=== PATIENT | female | born 1975 | race Caucasian/White ===

== ENCOUNTER 2018-05-09 15:16 | Observation (INO) | payer BC ==
--- NOTE | 2018-05-09 15:36 | EDPHY ---
H & P Stated Complaint: Chest pain Time Seen by Provider: 05/09/18 15:35 HPI/ROS: HPI CHIEF COMPLAINT: Chest pain. HISTORY OF PRESENT ILLNESS: Patient very pleasant 42-year-old female she has significant medical history for asthma and thyroid dysfunction, remote history of SVT and pericarditis, obesity, otherwise healthy, presents emergency room with chest pain. She states over the last week she has had multiple episodes of left-sided substernal chest pain that she describes a dull sensation. She was working out this morning around 9:30 a.m. And was running and developed some chest pain. This describes a dull ache substernal left-sided. Nonradiating. It lasted a minute. She stoped her workout called her doctor. Her doctor recommended she comes emergency room for evaluation. She arrives emergency room in no acute distress she denies active chest pain at this time. Noted be somewhat hypertensive. Past Medical History: Asthma, thyroid disease, SVT, pericarditis Past Surgical History: Multiple orthopedic surgeries, gastric bypass, gallbladder surgery, Social History: Denies tobacco or drugs. Does occasionally drink alcohol. Family History: Family history significant for coronary artery disease in her father who had a CABG in age 50s. Mom AFib. ROS REVIEW OF SYSTEMS: 10 Systems were reviewed and negative with the exception of the elements mentioned in the history of present illness. Exam Constitutional triage nursing summary reviewed, vital signs reviewed, awake/ alert. Vital signs noted at triage. Hypertensive. Eyes normal conjunctivae and sclera, EOMI, PERRLA. HENT normal inspection, atraumatic, moist mucus membranes, no epistaxis, neck supple/ no meningismus, no raccoon eyes. Respiratory clear to auscultation bilaterally, normal breath sounds, no respiratory distress, no wheezing. Cardiovascular rate normal, regular rhythm, no murmur, no edema, distal pulses normal. Gastrointestinal soft, non-tender, no rebound, no guarding, normal bowel sounds, no distension, no pulsatile mass. Genitourinary no CVA tenderness. Musculoskeletal no midline vertebral tenderness, full range of motion, no calf swelling, no tenderness of extremities, no meningismus, good pulses, neurovascularly intact. Skin pink, warm, & dry, no rash, skin atraumatic. Neurologic awake, alert and oriented x 3, AAOx3, moves all 4 extremities equally, motor intact, sensory intact, CN II-XII intact, normal cerebellar, normal vision, normal speech. Psychiatric normal mood/affect. Heme/Lymph/Immune no lymphadenopathy. Differential Diagnosis: Differential diagnosis includes but is not limited to: ACS, atypical chest pain, pneumothorax, pneumonia, pulmonary embolism, aortic dissection, congestive heart failure, tumor, musculoskeletal pain, esophageal pain, GERD, peptic ulcer disease, pancreatitis Medical Decision Making: Plan for this patient IV establishment, EKG, troponin , cardiac monitoring, evaluate for acute coronary syndrome and chest pain. Re-evaluation: EKG interpretation by me on record in [facility] system. Impression time of EKG 1538, sinus tach 109 borderline T-wave abnormalities noted lead 3 AVF and flattening in V3 V4 V5. No ST elevation. 1614: Patient has an elevated D-dimer in the setting of chest pain tachycardia and abnormal T-waves on her EKG I discussed proceeding with a CT angiogram of the chest rule out PE. Patient is agreeable for this. Reason for CT angiogram of the chest rule out pulmonary embolism the setting of tachycardia, T-wave abnormalities, and chest pain. D-dimer noted 1.58. Patient CT angiogram called to me by Dr. Fritz Roberts. This was attempted multiple times however did not get a good contrast bolus. Were able to rule out no central PE but unable to determine peripheral PEs. Will plan on bilateral lower extremity ultrasound rule out DVTs. Additionally the patient has cardiovascular risk factors include family history , obesity, exertional chest pain and an EKG that has some T-wave abnormalities. Do these risk factors the patient will be admitted to the hospital for further cardiac evaluation and rule out. The patient agrees on this plan. Consult the hospitalist service Dr. Jimenez who agrees to admit. Source: Patient - Personal History LMP (Females 10-55): IUD In Place Current Tetanus/Diphtheria Vaccine: No - Medical/Surgical History Hx Asthma: Yes Hx Chronic Respiratory Disease: No Hx Diabetes: No Hx Cardiac Disease: Yes Hx Renal Disease: No Hx Cirrhosis: No Hx Alcoholism: No Other PMH: asthma, hypothyroidism - Social History Smoking Status: Never smoked Constitutional: Initial Vital Signs Temperature (C) 36.6 C 05/09/18 15:20 Heart Rate 105 H 05/09/18 15:20 Respiratory Rate 15 05/09/18 15:20 Blood Pressure 159/104 H 05/09/18 15:20 O2 Sat (%) 98 05/09/18 15:20 O2 Delivery Mode Room Air Allergies/Adverse Reactions: Tetanus Vaccines and Toxoid [Tetanus] Allergy (Verified 05/09/18 15:23) Home Medications: Medication Instructions Recorded Multivitamins [Multivitamin (*)] 1 each PO DAILY 02/05/10 Albuterol Sulfate [Proair 90 mcg IH DAILY PRN 05/09/18 Respiclick] Levothyroxine [Synthroid 50 mcg 50 mcg PO DAILY06 05/09/18 (*)] Mometasone Furoate [Asmanex Hfa] 2 puffs IH DAILY 05/09/18 Montelukast Sodium [Singulair 10 10 mg PO DAILY@1800 05/09/18 mg (*)] Medical Decision Making - Data Points Laboratory Results: Laboratory Results 05/09/18 15:35 05/09/18 15:35 Medications Given: Levothyroxine Sodium (Synthroid) 50 mcg PO DAILY06 [facility] Stop: 11/06/18 05:59 Last Admin: 05/10/18 06:49 Dose: 50 mcg Miscellaneous Medication (Mometasone Furoate [Asmanex Hfa]) 2 puffs IH DAILY [facility] Stop: 11/06/18 08:59 Last Admin: 05/10/18 11:17 Dose: Not Given Montelukast Sodium (Singulair) 10 mg PO DAILY@1800 [facility] Stop: 11/06/18 17:59 Last Admin: 05/10/18 17:45 Dose: 10 mg Multivitamins (Tab-A-Disha) 1 each PO DAILY [facility] Stop: 11/06/18 08:59 Last Admin: 05/10/18 17:16 Dose: Not Given Discontinued Medications Aspirin (Aspirin) 325 mg PO EDNOW ONE Stop: 05/09/18 17:42 Last Admin: 05/09/18 17:58 Dose: 325 mg Sodium Chloride (Ns) 1,000 mls @ 0 mls/hr IV EDNOW ONE; Wide Open PRN Reason: Protocol Stop: 05/09/18 15:45 Last Admin: 05/09/18 16:03 Dose: 1,000 mls Point of Care Test Results: Chemistry 05/09/18 15:40 POC Troponin I 0.01 ng/mL ng/mL (0.00-0.08) Departure - Departure Disposition: [facility] Inpatient Acute Clinical Impression: Chest pain Qualifiers: Chest pain type: unspecified Qualified Code(s): R07.9 - Chest pain, unspecified Condition: Fair
[2018-05-09] MEDS ORDERED: NS 1,000 ML IV ONE (15:44)
[2018-05-09 15:52] LABS: PLATELET COUNT 171 10^3/uL (150-400)
[2018-05-09 16:00] LABS: INR 0.89 (0.83-1.16); PROTIME(PATIENT) 12.3 SEC (12.0-15.0)
[2018-05-09] MEDS ORDERED: IOPAMIDOL (ISOVUE 370) 100 ML BTL IV ONE ×2 (16:22→16:56)
[2018-05-09] MEDS ORDERED: ASPIRIN 325 MG TAB PO ONE (17:41)
[2018-05-09] MEDS ORDERED: ASPIRIN 81 MG CHEWABLE TAB ONE (17:57)
[2018-05-09] MEDS ORDERED: ONDANSETRON DISINTEGRATING 4 MG TAB PO PRN (18:04)
[2018-05-09] MEDS ORDERED: ONDANSETRON 4 MG/2 ML VIAL IVP PRN (18:04)
[2018-05-09] MEDS ORDERED: ACETAMINOPHEN 325 MG TAB PO PRN (18:04)
--- NOTE | 2018-05-09 18:25 | HOSPPROG ---
Hospitalist Progress Note Assessment/Plan: 42 yo F with PMH of RAD, remote hx of SVT and pericarditis admitted with chest pain for the last week # chest pain: patient notes that for the last week she has had intermittent dull chest pain, worse with exertion. No prior hx of same, she does have a family hx of premature CAD (father with CABG at age 50) but otherwise no significant cardiac risk factors. Heart score of 3, plan to monitor overnight on tele, trend trops and ecg overnight. Given baseline abnormal ecg (non specific t-wave changes) will get exercise nuc stress test in am if w/u overnight remains unremarkable # elevated d dimer: CTA performed however limited study only able to r/o central PE, will get f/u bilateral lower extremity US to eval for DVT, if this is unremarkable as well consider echo in am to eval for signs of right heart strain versus v/q study if no other etiology found for chest pain and remains symptomatic--low suspicion for PE given lack of hypoxia or pleuritic component to her chest pain # RAD: without e/o acute exacerbation, continue op regimen # morbid obesity: with BMI of 46, recommend lifestyle modification, patient does have a hx of gastric bypass remotely # hx of SVT: no longer on medications and has not been recurrent in many years per her report, monitoring on tele # hypothyroid: reports being recently initiated on thyroid supplementation, will continue when medications are confirmed # observation status Patient new to my care. Old records reviewed and summarized as above. Care plan reviewed with ER doctor as above as well as AUDREY Waldrop, please see her separate documentation for further details. Objective: Vital Signs Temp Pulse Resp BP Pulse Ox 36.6 C 86 24 H 124/77 H 97 05/09/18 15:20 05/09/18 17:30 05/09/18 17:30 05/09/18 17:30 05/09/18 17:30 PT 12.3 SEC (12.0-15.0) 05/09/18 15:35 INR 0.89 (0.83-1.16) 05/09/18 15:35 ICD10 Worksheet Patient Problems: Problems Problem Status Onset Chest pain Acute
[2018-05-09] MEDS ORDERED: ALBUTEROL 60 PUFFS/8 GM MDI IH PRN (19:30)
--- NOTE | 2018-05-09 19:31 | PDGENHP ---
<Roma Waldrop - Last Filed: 05/09/18 19:44> History and Physical - Chief Complaint Chest pain - History of Present Illness HPI: This is a 42 y/o female with hx of asthma, obesity, thyroid dysfunction and a remote hx of SVT and pericarditis presenting to the ER with c/o intermittent non-radiating left-sided substernal chest pain. Last week, she would randomly experience a chest pain that lasts 1 minute and then resolve. She would experience this at rest or with exertion. There was no associated symptoms when she experiences the chest pain. Today, she was exercising when she felt it. She stopped exercising and her chest pain resolved. She describes it as a persistent ache with an intensity of 2-3/10. She denies nausea, vomiting, shortness of breath, fevers, chills. She is being admitted for further work-up and monitoring. Past Medical History 1. Asthma 2. Thyroid dysfunction 3. Hx of SVTs and pericarditis Past Surgical History 1. Gastric bypass 2. Cholecystectomy 3. C/S Social 1. . Works as a technical support personnel, desk job. 2. Denies tobacco or illicit drug use. Drinks 2-3 glasses of wine 2-3 days out of the week. Uses CBD tincture oil. History Information - Allergies/Home Medication List Allergies/Adverse Reactions: Tetanus Vaccines and Toxoid [Tetanus] Allergy (Verified 05/09/18 15:23) Home Medications: Multivitamins [Multivitamin (*)] 1 each PO DAILY 02/05/10 [Last Taken 09/16/10 07:00] Albuterol Sulfate [Proair Respiclick] 90 mcg IH DAILY PRN 05/09/18 [Last Taken 05/09/18] Levothyroxine [Synthroid 50 mcg (*)] 50 mcg PO DAILY06 05/09/18 [Last Taken ] Mometasone Furoate [Asmanex Hfa] 2 puffs IH DAILY 05/09/18 [Last Taken 05/08/18] Montelukast Sodium [Singulair 10 mg (*)] 10 mg PO DAILY@1800 05/09/18 [Last Taken 05/08/18] I have personally reviewed and updated: family history, medical history, social history, surgical history Past Medical History: See HPI list - Surgical History Additional surgical history: See HPI list - Family History Additional family history: Father at CABG at 50 y/o. Mother has A-Fib - Social History Smoking Status: Never smoked Alcohol Use: Occasionally Drug Use: None Review of Systems Review of Systems: ROS: 10pt was reviewed & negative except for what was stated in HPI & below Physical Exam Physical Exam: Lab data and imaging were reviewed. Case discussed with admitting physician, Dr. Dada Jimenez INR: 0.89 D-Dimer: 1.58 Troponin: 0.01 EKG: Sinus tachycardia with borderline abnormal T-waves CXR: No focal infiltrate, pleural effusion or pneumothorax Chest CTA: No central pulmonary embolism however unable to view segmental branches d/t body habitus w/ contrast Dopper US of BLE: no DVT Temp Pulse Resp BP Pulse Ox 37.0 C 81 18 144/97 H 94 05/09/18 18:56 05/09/18 18:56 05/09/18 18:56 05/09/18 18:56 05/09/18 18:56 Constitutional: no apparent distress, appears nourished, not in pain, obese Eyes: PERRL, anicteric sclera, EOMI Ears, Nose, Mouth, Throat: moist mucous membranes, hearing normal, ears appear normal, no oral mucosal ulcers Cardiovascular: regular rate and rhythym, no murmur, rub, or gallop, No edema Peripheral Pulses: 2+: dorsalis-pedis (R) (Radial 2+), dorsalis-pedis (L) ( Radial 2+) Respiratory: no respiratory distress, no rales or rhonchi, clear to auscultation Gastrointestinal: normoactive bowel sounds, soft, non-tender abdomen, no palpable masses Genitourinary: no bladder fullness, no bladder tenderness Skin: warm, normal color, no rashes or abrasions, no fluctuance, no induration, No mottled Musculoskeletal: full muscle strength, no muscle tenderness, normal joint ROM, no joint effusions Neurologic: AAOx3, sensation intact bilaterally, CN II-XII Intact Psychiatric: interacting appropriately, not anxious, not encephalopathic, thought process linear Lymph, Heme, Immunologic: no cervical LAD, no supraclavicular LAD Lab Data & Imaging Review 05/09/18 15:35 05/09/18 15:35 WBC 8.26 10^3/uL (3.80-9.50) 05/09/18 15:35 RBC 4.36 10^6/uL (4.18-5.33) 05/09/18 15:35 Hgb 14.3 g/dL (12.6-16.3) 05/09/18 15:35 Hct 42.4 % (38.0-47.0) 05/09/18 15:35 MCV 97.2 fL (81.5-99.8) 05/09/18 15:35 MCH 32.8 pg (27.9-34.1) 05/09/18 15:35 MCHC 33.7 g/dL (32.4-36.7) 05/09/18 15:35 RDW 12.9 % (11.5-15.2) 05/09/18 15:35 Plt Count 171 10^3/uL (150-400) 05/09/18 15:35 MPV 11.6 fL (8.7-11.7) 05/09/18 15:35 Neut % (Auto) 60.4 % (39.3-74.2) 05/09/18 15:35 Lymph % (Auto) 28.5 % (15.0-45.0) 05/09/18 15:35 Wolfe % (Auto) 8.2 % (4.5-13.0) 05/09/18 15:35 Eos % (Auto) 2.1 % (0.6-7.6) 05/09/18 15:35 Baso % (Auto) 0.6 % (0.3-1.7) 05/09/18 15:35 Nucleat RBC Rel Count 0.0 % (0.0-0.2) 05/09/18 15:35 Absolute Neuts (auto) 4.99 10^3/uL (1.70-6.50) 05/09/18 15:35 Absolute Lymphs (auto) 2.35 10^3/uL (1.00-3.00) 05/09/18 15:35 Absolute Monos (auto) 0.68 10^3/uL (0.30-0.80) 05/09/18 15:35 Absolute Eos (auto) 0.17 10^3/uL (0.03-0.40) 05/09/18 15:35 Absolute Basos (auto) 0.05 10^3/uL (0.02-0.10) 05/09/18 15:35 Absolute Nucleated RBC 0.00 10^3/uL (0-0.01) 05/09/18 15:35 Immature Gran % 0.2 % (0.0-1.1) 05/09/18 15:35 Immature Gran # 0.02 10^3/uL (0.00-0.10) 05/09/18 15:35 PT 12.3 SEC (12.0-15.0) 05/09/18 15:35 INR 0.89 (0.83-1.16) 05/09/18 15:35 APTT 24.6 SEC (23.0-38.0) 05/09/18 15:35 D-Dimer 1.58 ug/mLFEU (0.00-0.50) H 05/09/18 15:35 Sodium 137 mEq/L (135-145) 05/09/18 15:35 Potassium 3.7 mEq/L (3.5-5.2) 05/09/18 15:35 Chloride 107 mEq/L (97-110) 05/09/18 15:35 Carbon Dioxide 22 mEq/l (22-31) 05/09/18 15:35 Anion Gap 8 mEq/L (6-14) 05/09/18 15:35 BUN 10 mg/dL (7-23) 05/09/18 15:35 Creatinine 0.6 mg/dL (0.6-1.0) 05/09/18 15:35 Estimated GFR > 60 05/09/18 15:35 Glucose 90 mg/dL (70-100) 05/09/18 15:35 Calcium 9.1 mg/dL (8.5-10.4) 05/09/18 15:35 Magnesium 1.9 mg/dL (1.6-2.3) 05/09/18 15:35 Total Bilirubin 0.5 mg/dL (0.1-1.4) 05/09/18 15:35 Conjugated Bilirubin 0.3 mg/dL (0.0-0.5) 05/09/18 15:35 Unconjugated Bilirubin 0.2 mg/dL (0.0-1.1) 05/09/18 15:35 AST 22 IU/L (14-46) 05/09/18 15:35 ALT 24 IU/L (9-52) 05/09/18 15:35 Alkaline Phosphatase 110 IU/L (38-126) 05/09/18 15:35 POC Troponin I 0.01 ng/mL (0.00-0.08) 05/09/18 15:40 NT-Pro-B Natriuret Pep 85 pg/mL (0-125) 05/09/18 15:35 Total Protein 6.9 g/dL (6.3-8.2) 05/09/18 15:35 Albumin 4.2 g/dL (3.5-5.0) 05/09/18 15:35 Lipase 158 IU/L (23-300) 05/09/18 15:35 Beta HCG, Qual NEGATIVE 05/09/18 15:35 Assessment & Plan Plan: This is a 42 y/o female with remote hx of SVT, pericarditis, obesity and asthma presenting with intermittent chest pain with no associated symptoms. She is at higher risk for ACS d/t her weight, symptoms, and family hx. #Chest pain: Heart score 3. Chest CTA to r/o PE; no central PE however segmental branches could not be determined d/t body habitus. Doppler BLE negative for DVTs. -First troponin was negative. Cycle troponin x 2 -EKG sinus tachy with abnormal T waves. Cycle 1x EKG tonight and PRN should status change -Cont tele monitoring -Lipid panel in AM -If tonight remains uneventful, will perform NM treadmill test in AM therefore NPO at midnight tonight #Obesity: BMI 46. Remote gastric bypass. Educated pt on weight reduction and lifestyle modification. #Asthma: on inhalers and may continue to use while in hospital. #Hypothyoid: on levothyroxine. Checking TSH. Diet: Cardiac, NPO @ midnight tonight VTE ppx: SCDs Code: Full Dispo: Admit to obs <Dada Jimenez - Last Filed: 05/10/18 08:38> History and Physical - History of Present Illness Review of Systems Review of Systems: Physical Exam Physical Exam: Temp Pulse Resp BP Pulse Ox 36.7 C 65 18 132/87 H 96 05/10/18 08:00 05/10/18 08:00 05/10/18 08:00 05/10/18 08:00 05/10/18 08:00 O2 (L/minute) 2 Lab Data & Imaging Review 05/10/18 03:06 05/10/18 03:06 WBC 4.81 10^3/uL (3.80-9.50) 05/10/18 03:06 RBC 3.74 10^6/uL (4.18-5.33) L 05/10/18 03:06 Hgb 12.3 g/dL (12.6-16.3) L 05/10/18 03:06 Hct 38.1 % (38.0-47.0) 05/10/18 03:06 MCV 101.9 fL (81.5-99.8) H 05/10/18 03:06 MCH 32.9 pg (27.9-34.1) 05/10/18 03:06 MCHC 32.3 g/dL (32.4-36.7) L 05/10/18 03:06 RDW 12.9 % (11.5-15.2) 05/10/18 03:06 Plt Count 138 10^3/uL (150-400) L 05/10/18 03:06 MPV 12.2 fL (8.7-11.7) H 05/10/18 03:06 Neut % (Auto) 50.0 % (39.3-74.2) 05/10/18 03:06 Lymph % (Auto) 37.0 % (15.0-45.0) 05/10/18 03:06 Wolfe % (Auto) 8.9 % (4.5-13.0) 05/10/18 03:06 Eos % (Auto) 3.3 % (0.6-7.6) 05/10/18 03:06 Baso % (Auto) 0.4 % (0.3-1.7) 05/10/18 03:06 Nucleat RBC Rel Count 0.0 % (0.0-0.2) 05/10/18 03:06 Absolute Neuts (auto) 2.40 10^3/uL (1.70-6.50) 05/10/18 03:06 Absolute Lymphs (auto) 1.78 10^3/uL (1.00-3.00) 05/10/18 03:06 Absolute Monos (auto) 0.43 10^3/uL (0.30-0.80) 05/10/18 03:06 Absolute Eos (auto) 0.16 10^3/uL (0.03-0.40) 05/10/18 03:06 Absolute Basos (auto) 0.02 10^3/uL (0.02-0.10) 05/10/18 03:06 Absolute Nucleated RBC 0.00 10^3/uL (0-0.01) 05/10/18 03:06 Immature Gran % 0.4 % (0.0-1.1) 05/10/18 03:06 Immature Gran # 0.02 10^3/uL (0.00-0.10) 05/10/18 03:06 PT 12.3 SEC (12.0-15.0) 05/09/18 15:35 INR 0.89 (0.83-1.16) 05/09/18 15:35 APTT 24.6 SEC (23.0-38.0) 05/09/18 15:35 D-Dimer 1.58 ug/mLFEU (0.00-0.50) H 05/09/18 15:35 Sodium 137 mEq/L (135-145) 05/10/18 03:06 Potassium 3.7 mEq/L (3.5-5.2) 05/10/18 03:06 Chloride 108 mEq/L (97-110) 05/10/18 03:06 Carbon Dioxide 21 mEq/l (22-31) L 05/10/18 03:06 Anion Gap 8 mEq/L (6-14) 05/10/18 03:06 BUN 6 mg/dL (7-23) L 05/10/18 03:06 Creatinine 0.6 mg/dL (0.6-1.0) 05/10/18 03:06 Estimated GFR > 60 05/10/18 03:06 Glucose 87 mg/dL (70-100) 05/10/18 03:06 Calcium 8.1 mg/dL (8.5-10.4) L 05/10/18 03:06 Magnesium 1.9 mg/dL (1.6-2.3) 05/09/18 15:35 Total Bilirubin 0.6 mg/dL (0.1-1.4) 05/10/18 03:06 Conjugated Bilirubin 0.3 mg/dL (0.0-0.5) 05/09/18 15:35 Unconjugated Bilirubin 0.2 mg/dL (0.0-1.1) 05/09/18 15:35 AST 18 IU/L (14-46) 05/10/18 03:06 ALT 28 IU/L (9-52) 05/10/18 03:06 Alkaline Phosphatase 70 IU/L (38-126) 05/10/18 03:06 POC Troponin I 0.01 ng/mL (0.00-0.08) 05/09/18 15:40 Troponin I < 0.012 ng/mL (0.000-0.034) 05/10/18 03:06 NT-Pro-B Natriuret Pep 85 pg/mL (0-125) 05/09/18 15:35 Total Protein 5.3 g/dL (6.3-8.2) L 05/10/18 03:06 Albumin 3.1 g/dL (3.5-5.0) L 05/10/18 03:06 Triglycerides 134 mg/dL (35-135) 05/10/18 03:06 Cholesterol 157 mg/dL (140-200) 05/10/18 03:06 Cholesterol Risk Factr 0.8 (0.2-1.0) 05/10/18 03:06 LDL Cholesterol, Calc 89 mg/dL (70-100) 05/10/18 03:06 LDL Risk Factor 0.8 (0.2-1.0) 05/10/18 03:06 VLDL Cholesterol 27 mg/dL (8-25) H 05/10/18 03:06 Non-HDL Cholesterol 116 mg/dL (90-129) 05/10/18 03:06 HDL Cholesterol 41 mg/dL (40-95) 05/10/18 03:06 LDL/HDL Ratio 2.18 RATIO (1.00-3.22) 05/10/18 03:06 Cholesterol/HDL Ratio 3.83 RATIO (1.00-4.44) 05/10/18 03:06 Lipase 158 IU/L (23-300) 05/09/18 15:35 TSH 2.700 uIU/mL (0.465-4.680) 05/09/18 19:30 Beta HCG, Qual NEGATIVE 05/09/18 15:35 Assessment & Plan Assessment: Chest pain (Acute) Plan: Patient seen and evaluated independently and care plan reviewed with AUDREY Waldrop, agree with her assessment and plan as outlined above. Please see separate documentation for further details.
[2018-05-10 04:43] LABS: PLATELET COUNT 138 10^3/uL (150-400)
[2018-05-10] MEDS: LEVOTHYROXINE 50 MCG TAB PO SCH (06:49)
[2018-05-10] MEDS ORDERED: REGADENOSON 0.4 MG/5 ML SYR IVP ONE (10:01)
--- NOTE | 2018-05-10 10:37 | PDCARST ---
CAR Stress Test Results Type of Stress Test: Nuclear TM stress test Indication: cp Description of Procedure: After informed consent was obtained, pt was exercised according to Oleg Protocol. Monitoring was performed with standard stress engine dynamometer tester electrode placement. Vital signs were monitored according to protocol throughout the procedure. STRESS EKG AND HEMODYNAMIC DATA. Exercise time: 7: 10 min. This is equivalent to: 8.3 METS. Resting heart rate: 81 bpm. Resting blood pressure: 130/90 mmHg. Resting O2 saturation: 93 %. Peak heart rate: 174 bpm. This is 97 % of age predicted maximum heart rate response. Peak blood pressure: 160/100 mmHg. Exercise O2: 83 %. Arrhythmias: None. Reason for termination: The test was stopped due to maximal effort/hypoxia. Symptoms: The patient experienced no typical symptoms of angina during stress or recovery. STRESS TEST ANALYSIS. Baseline ECG: SR. Stress ECG: sinus tach. No exercise induced ischemic ECG changes. Rhythm: no arrhythmias noted during exercise and recovery. Blood pressure: Mild resting htn with normal blood pressure response to exercise. Exercise tolerance: The patient has average exercise tolerance adjusted for age and gender. Symptoms: Dyspnea. Impression: IMPRESSIONS: Stress ECG is negative for ischemia. The Noble Treadmill Score is +7, consistent with low cardiovascular risk (<1% annual mortality). Hypoxia at peak quickly resolved with cessation of Oleg protocol. Conclusion: DTS +7/ low risk. Hypoxia with exertion.
[2018-05-10] MEDS: Mometasone Furoate [Asmanex Hfa] 2 PUFFS IH SCH (11:17)
--- NOTE | 2018-05-10 15:12 | ASMTCMCOM ---
CM Note CM Note Notes: Discussed pt during rounds. Pt admitted for chest pain and elevated d dimer with history of asthma, obesity and thyroid dysfunction and remote gastric bypass. Pt lives independently with and did stress test today and will do resting scan tomorrow. Pt likely to discharge independently. CM to follow. D/C Plan: Independent Date Signed: 05/10/2018 03:11 PM Electronically Signed By:Katja Quinn
[2018-05-10] MEDS: MULTIVITAMINS 1 EACH TAB PO SCH (17:16)
[2018-05-10] MEDS ORDERED: MONTELUKAST SODIUM 10 MG TAB PO SCH (18:00)
[2018-05-11] MEDS: LEVOTHYROXINE 50 MCG TAB PO SCH (05:00)
--- NOTE | 2018-05-11 08:56 | HOSPPROG ---
Hospitalist Progress Note Objective: Vital Signs Temp Pulse Resp BP Pulse Ox 36.8 C 66 18 132/72 H 95 05/11/18 07:43 05/11/18 07:43 05/11/18 07:43 05/11/18 07:43 05/11/18 07:43 Laboratory Results 05/10/18 03:06 05/10/18 03:06 05/10/18 05/11/18 05/12/18 05:59 05:59 05:59 Intake Total 500 480 Output Total 700 Balance -200 480 PT 12.3 SEC (12.0-15.0) 05/09/18 15:35 INR 0.89 (0.83-1.16) 05/09/18 15:35 ICD10 Worksheet Patient Problems: Problems Problem Status Onset Chest pain Acute
[2018-05-11 12:18] VITALS: BP 143/91
--- NOTE | 2018-05-11 14:34 | PDDCSUM ---
Discharge Summary Discharge Summary: Discharge diagnosis Chest pain Hypothyroid Asthma The patient was admitted secondary to chest pain. ECG had some borderline T wave abnormalities. CT was obtained and found no acute abnormality and no pulmonary embolus. Her heart score was 3. An exercise stress test was obtained the next day which was normal. She became hypoxic during the stress test however and so a Lexiscan was ordered as well. On the exercise portion of the Lexiscan there was possibly an area of abnormality although neither Radiology or Cardiology could say for certain whether not this represented true wall motion abnormality. The resting portion of her myocardial perfusion imaging was normal however. Cardiology was consulted who felt that this likely represented an artifact given her history but because of her family history they felt that she should be followed up. She was discharged home to follow up with [facility] in the next 1-2 weeks. Discharge disposition Home in good condition New medications None
--- NOTE | 2018-05-11 14:45 | ASMTDCNOTE ---
Case Management Discharge Discharge Order Complete? Answers: Yes Patient to Obtain Answers: via Family Medications Transportation Arranged Answers: Family/Friends Discharge Comments Notes: Pt is being discharged independently. Family to transport. No CM needs identified. Date Signed: 05/11/2018 02:45 PM Electronically Signed By:WISAM Nagel
--- NOTE | 2018-05-11 14:48 | ASDISCHSUM ---
Discharge Information Plan Status:Home with No Needs Medically Cleared to Leave: Discharge Date: D/C Disposition:Home, Routine, Self-Care ADT D/C Disposition:Home, Routine, Self-Care Projected Discharge Date:05/11/2018 12:00 AM Transportation at D/C:Family Discharge Delay Reason: Follow-Up Date:05/11/2018 12:00 AM Discharge Slot: Final Diagnosis: Placement Information Patient Contact Information Contact Name:MABEL Relationship:Jose Angel Address:[address] City:[facility] Phone: [facility] Code:[place] [id number] Email: Financial Information Financial Class:BCOP Primary Plan Desc: OUT OF STATE [facility] Primary Plan Number:[id number] Secondary Plan Desc: Secondary Plan Number: Assessment Information [facility] CM Progress Note CM Note CM Note Notes: Discussed pt during rounds. Pt admitted for chest pain and elevated d dimer with history of asthma, obesity and thyroid dysfunction and remote gastric bypass. Pt lives independently with and did stress test today and will do resting scan tomorrow. Pt likely to discharge independently. CM to follow. D/C Plan: Independent Date Signed: 05/10/2018 03:11 PM Electronically Signed By:Katja Quinn Case Management Discharge Plan Note Case Management Discharge Discharge Order Complete? Answers: Yes Patient to Obtain Answers: via Family Medications Transportation Arranged Answers: Family/Friends Discharge Comments Notes: Pt is being discharged independently. Family to transport. No CM needs identified. Date Signed: 05/11/2018 02:45 PM Electronically Signed By:WISAM Nagel LACE LACE Length of stay for Answers: 1 day current admission Acuity / Level of Answers: No Care: Did the patient have an inpatient admission? Comorbidities - select Answers: Other Notes: asthma, thyroid, SVTs all that apply # of Emergency department Answers: 0 visits in the last 6 months Score: 2 Date Signed: 05/11/2018 02:47 PM Electronically Signed By:WISAM Nagel Intervention Information
[2018-05-11] MEDS: Mometasone Furoate [Asmanex Hfa] 2 PUFFS IH SCH (14:49)
[2018-05-11] MEDS: MULTIVITAMINS 1 EACH TAB PO SCH (14:50)
--- NOTE | 2018-05-11 19:53 | CPEKG ---
Test Reason : OPEN Blood Pressure : / mmHG Vent. Rate : 109 BPM Atrial Rate : 109 BPM P-R Int : 171 ms QRS Dur : 108 ms QT Int : 346 ms P-R-T Axes : 033 037 -29 degrees QTc Int : 467 ms Sinus tachycardia Borderline T abnormalities, diffuse leads Confirmed by Trev Farmer ([id number]) on 05/11/2018 7:51:33 PM Referred By: Trev Farmer Confirmed By:Trev Farmer
--- NOTE | 2018-05-11 21:14 | GCON ---
[f rep st] CONSULTATION CARDIOLOGY CONSULTATION DATE OF CONSULTATION: 05/11/2018 REFERRING PHYSICIAN: Dr. Jimenez REASON FOR CONSULTATION: Chest pain and abnormal nuclear stress test. HISTORY: The patient is a 42-year-old woman with a history of paroxysmal SVT and pericarditis when s he was in college. She has no other cardiac history. She was admitted to the hospital on April 19 reporting a week-long history of intermittent episodes of vague, dull chest discomfort rated 2 on a scale of 10. It occurred intermittently throughout the day and lasted for 1-2 minutes. It was no t reliably precipitated by physical activity. Many episodes occurred at rest; however, on Saturday, jarvis ely did experience an episode at the end of her usual exercise session. Because of her father's cardia c history, she became concerned and contacted her PCP's office. She was advised to proceed to the em ergency room. There, her ECG did not demonstrate any acute ischemic changes. She was admitted for o bservation. She ruled out for an acute ischemic event. Yesterday, she underwent an exercise treadmi ll test during which she exercised 7 minutes 10 seconds of Oleg protocol, reaching 97% MPHR without chest pain or ECG changes. The resting nuclear perfusion study was obtained today. The report is no t finalized, but I had a discussion with the hospitalist who had communicated with the radiology depa rtment. It sounds as if there is a subtle, questionable apical defect. Her cardiovascular risk factor profile is negative for diabetes. Her PCP has been concerned about he r blood pressure, but has not recommended initiation of antihypertensive therapy. A lipid panel perf ormed during this hospital stay demonstrated a total cholesterol of 157 with HDL 41, LDL 89, and trig lycerides 134. She has never been a smoker. Her father developed coronary artery disease and underw ent a 4-vessel CABG in his late 50s or early 60s. PAST MEDICAL HISTORY: She has exercise-induced asthma and hypothyroidism. As mentioned previously, she had paroxysmal SVT and an episode of what she was told was pericarditis while she was in college. She took verapamil for a number of years but eventually discontinued it. PAST SURGICAL HISTORY: Her surgical history consists of gastric bypass, cholecystectomy, and cesarea n section. FAMILY HISTORY: Her father's cardiac history is detailed above. MEDICATIONS: Her home medications are detailed in the electronic record. She is on no cardioactive medications. ALLERGIES: Tetanus toxoid. SOCIAL HISTORY: She is . She has 3 children. As mentioned previously, she has never been a smoker. She does not consume significant amounts of alcohol. She exercises regularly. 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 REVIEW OF SYSTEMS: Apart from the chest discomfort that prompted this hospital encounter, a 10-point review was negative. PHYSICAL EXAMINATION: VITAL SIGNS: Heart rate in the 80s with sinus rhythm on the monitor. Blood p ressure 143/91. O2 saturation 95% on room air. GENERAL: This is a moderately obese woman in no acu te distress. She is alert and oriented x3. HEAD AND NECK: No scleral icterus. Mucous membranes mo ist. Carotid pulses 2+ without bruits. There is no JVD. CHEST: Lung carver clear to auscultation bilaterally. CARDIAC: Regular rate and rhythm with a normal S1 and S2. There is no murmur or mcwilliams p. ABDOMEN: Soft, nontender, nondistended, with normal bowel sounds. EXTREMITIES: 2+ pulses, and no peripheral edema. LABORATORY STUDIES: Serial troponins were normal at less than 0.012. Her BNP was 85. Sodium 137, p otassium 3.7, BUN and creatinine 6 and 0.6. Her CBC was normal. ELECTROCARDIOGRAM: An ECG performed in the emergency room demonstrates normal sinus rhythm. No Q-wa ves or conduction system disturbances. Nonspecific low voltage T-waves. IMPRESSION: This is a 42-year-old woman with no prior cardiac history and a relatively low cardiovas cular risk profile with the exception of family history. She presents with somewhat atypical chest d iscomfort. She has ruled out for an acute ischemic episode. She has not demonstrated any arrhythmia s or evidence of congestive heart failure. Her exercise treadmill test yesterday was normal on both clinical and electrocardiographic grounds. Her nuclear perfusion image appears to demonstrate a rela tively subtle apical defect. PLAN: I had a discussion with the patient about the findings of her studies. I laid out 2 potential paths for further assessment. 1. We could proceed with cardiac catheterization to definitively assess her coronary anatomy and memo l with any significant findings. 2. Given that her treadmill performance sorts her into a low-risk category, we could take an observa tional approach; however, I did also recommend that she should follow up with our office, and I also recommended that she consider having a CT coronary calcium score performed. At that point, she infor med me that she had a CT coronary calcium score 1-2 years ago. She confirmed that she had previous a ppointment information with [facility] in her phone; however, she did not have a copy of her report. She recalls a discussion with her primary care provider regarding the results. While her score was not 0, it was apparently very low, and no changes were made to her therapy. Sp ecifically, there was no recommendation to initiate aspirin or statin therapy. At this point, we have opted to take the second pathway. I have provided her with my business card. I will communicate with our office staff to contact her to arrange a followup appointment. /[id number]/MODL
== END 2018-05-11 15:09 | disposition home or self-care (01) ==
LOC: F2W 18:40
PROVIDERS: ADMIT Internal Medicine; ATTEND Internal Medicine
DX: R07.9 Chest pain, unspecified (principal); R79.89 Other specified abnormal findings of blood chemistry; E86.9 Volume depletion, unspecified; E03.9 Hypothyroidism, unspecified; R09.02 Hypoxemia; J45.909 Unspecified asthma, uncomplicated; E66.9 Obesity, unspecified; Z68.42 Body mass index [BMI] 45.0-49.9, adult; Z79.51 Long term (current) use of inhaled steroids; Z82.49 Family history of ischemic heart disease and other diseases of the circulatory system; Z98.84 Bariatric surgery status
CPT/HCPCS: 71045; 71275; 78452; 93005; 93017; 93970; 96360; 99285; A9500; G0378; 84484-ER; J2785; Q9967

== ENCOUNTER → 2018-07-01 | Outpatient (CLI) | payer BC | LOC: FIMAGING 13:45 | PROVIDERS: ATTEND Internal Medicine Pulmonary Disease | DX: R06.09 Other forms of dyspnea (principal) | CPT/HCPCS: 71046; 78582; A9540; A9558 ==